=== PATIENT | female | born 1970 | race Caucasian/White ===

== ENCOUNTER 2019-08-13 14:14 | Emergency (ER) | payer BC, OTHER ==
[~2019-08-13] VITALS: Ht 162.6 cm; Wt 70.3 kg
[2019-08-13] MEDS ORDERED: KETOROLAC 30 MG/ML 1ML VIAL IM ONE (15:30)
[2019-08-13] MEDS ORDERED: LIDOCAINE 5% (LIDODERM) PATCH TD ONE (15:30)
[2019-08-13] MEDS ORDERED: ACETAMINOPHEN 500 MG TAB PO ONE (16:15)
[2019-08-13 17:01] VITALS: BP 142/82
[2019-08-13] MEDS ORDERED: CYCL5TAB PO (17:25)
[2019-08-13] MEDS ORDERED: **NOTE PATIENT COMMENT** MISC XX SCH (21:00)
== END 2019-08-13 17:39 | disposition home or self-care (01) ==
LOC: M ED 14:14
DX: S39.012A Strain of muscle, fascia and tendon of lower back, initial encounter (principal); X50.0XXA Overexertion from strenuous movement or load, initial encounter; Y92.89 Other specified places as the place of occurrence of the external cause; Y93.9 Activity, unspecified; Y99.9 Unspecified external cause status; M62.830 Muscle spasm of back; F17.218 Nicotine dependence, cigarettes, with other nicotine-induced disorders; Z88.0 Allergy status to penicillin
CPT/HCPCS: 96372; 99283; J1885

== ENCOUNTER → 2023-05-18 | Outpatient (CLI) | payer BC ==
[~2023-05-18] MED LIST: CYCL5TAB PO
== END ==
LOC: M WUC 08:53
PROVIDERS: ATTEND Physician Assistant
DX: F17.210 Nicotine dependence, cigarettes, uncomplicated (principal)